=== PATIENT | female | born 1985 | race Caucasian/White ===

== ENCOUNTER → 2025-01-01 09:54 | Outpatient (REF) | payer OTHER, SELFPAY | LOC: WDC 09:54 | PROVIDERS: ATTENDING PHYSICIAN Student in an Organized Health Care Education/Training Program; FAMILY PHYSICIAN Physician Assistant Medical | DX: N63.0 Unspecified lump in unspecified breast (principal) | CPT/HCPCS: 76642; 77062; 77066 ==